=== PATIENT | female | born 1945 | race Caucasian/White ===

== ENCOUNTER 2019-03-05 12:29 | Inpatient (IN) ==
[2019-03-05] MEDS ORDERED: Fluticasone Propionate Nasal 50 MCG/SPRAY BOTTLE NS PRN (15:41)
[2019-03-05] MEDS: *HR* OxyCODONE Immed Rel 5 MG TABLET PO PRN (16:13)
--- NOTE | 2019-03-05 17:12 | Internal Med History&Physical ---
Date of Encounter: 03/05/19 Time of Encounter: 16:35 Assessment and Plan (1) Status post bilateral knee replacements Current visit: No Status: Acute PT and OT evaluations will be ordered. She will receive scheduled and prn analgesics. Lovenox will be given for DVT prophylaxis. (2) Hyperlipemia Current visit: No Status: Chronic Continue Vytorin. Qualifiers: Hyperlipidemia type: unspecified Qualified Code(s): E78.5 - Hyperlipidemia, unspecified (3) FEDERICO (obstructive sleep apnea) Current visit: No Status: Chronic Continue CPAP at bedtime (4) Acute blood loss anemia Current visit: No Status: Acute Monitor CBC. Internal Medicine - H&P: HPI Chief complaint: Bilateral TKR Admitted From: Hospital to Hospital Transfer Plans for Post Hospital Care: Home History of present illness: Ms. Watson is a 73 year old female who was discharged to [facility] swing bed following [facility] hospitalization March 01 for robotic-assisted bilateral TKR. Her postop course was remarkable only for anemia requiring blood transfusion. She was discharged to swing bed for rehabilitation therapy prior to returning to independent living. Muscle skeletal history is pertinent for DJD. She denies gout or other bone joint or muscle disorders. Past Med Surg Social Fam HX - Past Medical History Medical history: asthma, cancer, DVT, dementia, hyperlipidemia Additional medical history: SLEEP APNEA, FIBROMYALGIA, DVT, ENDOMETRIAL CA, MASTALGIA, VENOUS INSUFF, Psychiatric history: anxiety - Past Surgical History Additional surgical history: "not recently". cervical cancer. hernia, loop recorder. vein stripping - Social History Smoking Status: Former smoker Smokeless Tobacco Status: No Alcohol use: none Drug use: none - Family History Mother Hx Family Cardiac Disorders: Yes (Stroke) Hx Family Respiratory Disorders: No Hx Family Cancer: Yes (Cervical) Hx Family GI Disorders: No Hx Family Endocrine Disorder: Yes (DM) Hx Family Neuromuscular Disorders: No Hx Family Neurologic Disorders: No Hx Family HEENT Disorders: No Hx Family Autoimmune Disorders: No Brother Hx Family Cardiac Disorders: Yes (cva) Hx Family Respiratory Disorders: No Hx Family Cancer: No Hx Family GI Disorders: No Hx Family Endocrine Disorder: Yes (DM) Hx Family Neuromuscular Disorders: No Hx Family Neurologic Disorders: No Hx Family HEENT Disorders: No Hx Family Autoimmune Disorders: No Internal Medicine - H&P: Meds Citalopram [CeleXA] 30 mg PO DAILY 04/18/16 [History] Ezetimibe/Simvastatin [Vytorin 10-40 mg Tablet] 1 tab PO DAILY 04/18/16 [History] Gluc/Matt-MSM#1/C/Robert/Matthew/Bor [Osteo Bi-Flex Caplet] 1 tab PO DAILY 04/18/16 [History] Memantine HCl 10 mg PO BID 12/22/17 [History] Cholecalciferol (D-3) [Vitamin D] 2,000 unit PO DAILY 02/17/18 [History] Donepezil [Aricept] 5 mg PO DAILY 03/01/19 [History] Fluticasone Propionate Nasal [Flonase] 1 spr NS DAILY PRN 03/01/19 [History] Aspirin Enteric Coated [Aspirin EC] 325 mg PO BID 10 Days #20 tablet. 03/04/19 [Rx] Ferrous Sulfate 325 mg PO BIDWM tablet 03/04/19 [Rx] Lidocaine Patch [Lidoderm 5% patch] 1 each TP DAILY adh..patch 03/04/19 [Rx] OxyCODONE Immed Rel [Roxicodone 5 MG] 5 mg PO Q6HR PRN 5 Days #20 tablet 03/04/19 [Rx] Allergy/AdvReac Type Severity Reaction Status Date / Time lisinopril Allergy Swelling Verified 03/01/19 08:42 of Lip/Tongue/Throat All Systems PM: A 10-system review of systems was performed and is negative for pertinent findings except as documented above in the HPI. Review of systems: Gen.: Her weight has been stable for several months Cardiovascular: She denies hypertension CT heart failure angina DVT or pulmonary embolus. She had a loop recorder placed July 2018 to assist in diagnosing etiology of episodes of syncope. Regadenoson EST 02/18/2018 showed LVEF of 63%. EKG and perfusion imaging were negative for infarct or ischemia. Echocardiogram 02/17/2018 showed LVEF 50%. There was mild to moderate mitral regurgitation and mild tricuspid regurgitation. Interventricular septum and posterior wall thickness measurements were 1.07 and 0.96 cm respectively. E/A ratio was 0.8. Respiratory: She smoked as a teenager. She has diagnosis of asthma. She denies COPD. She has FEDERICO and uses CPAP with oxygen bleed in at bedtime. GI: She denies disorders of her liver gallbladder or exocrine pancreas. She has had ventral hernia repair 2 with most recent one 02/18/2018. : She has had UTIs in the past. She denies other kidney or bladder disorders Neurologic: She has been diagnosed with dementia. She denies large distribution strokes or seizures. Endocrine: She has hyperlipidemia but denies diabetes or thyroid disease Hematology/oncology: She had postoperative anemia requiring transfusion. She had cervical cancer with curative hysterectomy approximately 1980. She denies other blood disorders or internal malignancies Psychiatric: She has anxiety but denies depression or other mental health diagnosis Mus[place] skeletal: As per history of present illness - Constitutional Vitals: Temp Pulse Resp BP Pulse Ox 97.6 F 82 16 109/55 97 03/05/19 15:54 03/05/19 15:54 03/05/19 15:54 03/05/19 15:54 03/05/19 15:54 Exam: Gen.: She is a well-developed well-nourished female resting comfortably in bed who appears in no acute distress HEENT: Head is atraumatic and normal cephalic. Eyes: EOMI. There is no scleral icterus. Mouth: Mucosa is moist. Neck: Supple and nontender. There is no thyromegaly or adenopathy noted. Heart: Regular without murmurs gallops or ectopics Lungs: No wheezes or crackles are heard. Abdomen: Soft and nontender. No masses or guarding are noted. Extremities: There is no cyanosis edema or clubbing noted. Dorsalis pedis and posterior tibial pulses are trace to 1+ palpable bilaterally. She has surgical honeycomb dressings over her knees. Neurologic: Mental status: She is talkative and answers questions appropriately. Cranial nerves: Smile is symmetric. Forehead wrinkles bilaterally. Tongue protrudes midline. EOMI. Motor: There is no pronator drift. Cerebellar: Finger to nose is intact bilaterally. Skin: Warm and dry
[2019-03-05] MEDS: Acetaminophen 325 MG TABLET PO SCH (18:44)
[2019-03-05] MEDS ORDERED: Aspirin Enteric Coated 325 MG Tablet PO SCH (21:00)
[2019-03-06] MEDS: Acetaminophen 325 MG TABLET PO SCH ×4 (00:49→17:34)
[2019-03-06] MEDS: *HR* OxyCODONE Immed Rel 5 MG TABLET PO PRN ×3 (03:25→15:49)
[2019-03-06 05:54] LABS: Basophils % 0.3 %; Eosinophils # 0.5 K/mcL (0.0-0.6); Eosinophils % 7.6 %; Hemoglobin 8.3 g/dL (11.5-15.4); Immature Granulocytes % 0.6 % (0-4); Lymphocytes # 1.4 K/mcL (0.6-4.6); Lymphocytes % 22.4 %; Mean Corpuscular HGB Conc 33.2 g/dL (31.6-35.5); Mean Corpuscular Hemoglobin 31.3 pg (28.0-33.3); Mean Corpuscular Volume 94.3 fL (83.0-100.0); Mean Platelet Volume 9.8 fL (9.4-12.4); Monocytes # 0.6 K/mcL (0.0-1.3); Monocytes % 9.1 %; Neutrophils # 3.7 K/mcL (1.6-8.9); Platelet Count 177 K/mcL (140-400); Red Blood Count 2.65 M/mcL (3.82-4.97); Red Cell Distribution Width 16.4 % (11.5-14.5); White Blood Count 6.2 K/mcL (4.3-11.1)
[2019-03-06] MEDS: *HR* Enoxaparin 40 MG/0.4 ML SYRINGE SQ SCH (06:56)
[2019-03-06] MEDS ORDERED: NON-FORMULARY MEDICATION 1 EACH EACH (Gluc/Chon-Msm#1/C/Mang/Bos/Bor [Osteo Bi-Flex Caplet PO SCH (09:00)
--- NOTE | 2019-03-06 09:10 | Internal Med Progress Note ---
Date of Encounter: 03/06/19 Time of Encounter: 09:03 - Assessment and plan (1) Status post bilateral knee replacements Current Visit: No Status: Acute Assessment and plan: March 06. Continue PT/OT, Lidoderm and other analgesics. (2) Hyperlipemia Current Visit: No Status: Chronic Assessment and plan: March 06. Continue Vytorin Qualifiers: Hyperlipidemia type: unspecified Qualified Code(s): E78.5 - Hyperlipidemia, unspecified (3) FEDERICO (obstructive sleep apnea) Current Visit: No Status: Chronic Assessment and plan: March 06. Continue CPAP at bedtime (4) Acute blood loss anemia Current Visit: No Status: Acute Assessment and plan: March 06. Monitor CBC - Subjective Interval history: March 06. She has no new complaints. - Constitutional Vitals: Temp Pulse Resp BP Pulse Ox 98.3 F 63 18 115/71 97 03/06/19 07:17 03/06/19 07:17 03/06/19 07:17 03/06/19 07:17 03/06/19 07:17 Exam: She is resting comfortably in bed and appears in no acute distress. Her affect is bright and cheerful. There is no erythema or drainage visualized at surgical sites. I reviewed her medications and lab results. Internal Medicine: Result - Labs CBC & Chem 7: 03/06/19 05:32 Labs: Short CBC 03/06/19 Range/Units 05:32 WBC 6.2 (4.3-11.1) K/mcL Hgb 8.3 L (11.5-15.4) g/dL Hct 25.0 L (35.3-44.9) % Plt Count 177 (140-400) K/mcL Neutrophils # 3.7 (1.6-8.9) K/mcL Consult Discharge Plan - Plan Referrals: Juan Asif MD [Primary Care Provider] - 1 week
[2019-03-06 09:17] LABS: % Iron Saturation 18 % (15-50); Iron 53 mcg/dL (50-170); Transferrin 213 mg/dL (203-362)
[2019-03-06] MEDS: Cholecalciferol (D-3) 1,000 UNIT (25MCG) TABLET PO SCH (09:25)
[2019-03-06 09:35] LABS: Ferritin 53 ng/mL (10-120)
[2019-03-06 09:40] LABS: Folate 6.2 ng/mL (3.0-16.0)
[2019-03-07] MEDS: Acetaminophen 325 MG TABLET PO SCH ×4 (01:00→16:59)
[2019-03-07] MEDS: *HR* OxyCODONE Immed Rel 5 MG TABLET PO PRN ×3 (02:23→18:30)
[2019-03-07] MEDS: *HR* Enoxaparin 40 MG/0.4 ML SYRINGE SQ SCH (05:46)
[2019-03-07] MEDS: Cholecalciferol (D-3) 1,000 UNIT (25MCG) TABLET PO SCH (09:53)
[2019-03-08] MEDS: *HR* OxyCODONE Immed Rel 5 MG TABLET PO PRN ×3 (01:22→13:39)
[2019-03-08] MEDS: Acetaminophen 325 MG TABLET PO SCH ×4 (06:42→17:07)
[2019-03-08] MEDS: *HR* Enoxaparin 40 MG/0.4 ML SYRINGE SQ SCH (06:42)
[2019-03-08] MEDS: MOM Conc 10 ML UD.LIQ PO PRN (08:14)
[2019-03-08] MEDS: Cholecalciferol (D-3) 1,000 UNIT (25MCG) TABLET PO SCH (08:19)
[2019-03-08] MEDS ORDERED: *HR* OxyCODONE Immed Rel 5 MG TABLET PO PRN (11:00)
[2019-03-08] MEDS ORDERED: Cyanocobalamin (B-12) 1,000 MCG/ML VIAL IM ONE (15:18)
--- NOTE | 2019-03-08 15:27 | Internal Med Progress Note ---
Date of Encounter: 03/08/19 Time of Encounter: 15:20 - Assessment and plan (1) Status post bilateral knee replacements Current Visit: No Status: Acute Assessment and plan: March 06. Continue PT/OT, Lidoderm and other analgesics. (2) Hyperlipemia Current Visit: No Status: Chronic Assessment and plan: March 06. Continue Vytorin Qualifiers: Hyperlipidemia type: unspecified Qualified Code(s): E78.5 - Hyperlipidemia, unspecified (3) FEDERICO (obstructive sleep apnea) Current Visit: No Status: Chronic Assessment and plan: March 06. Continue CPAP at bedtime (4) Acute blood loss anemia Current Visit: No Status: Acute Assessment and plan: March 06. Monitor CBC March 08. Recheck labs in a.m. (5) B12 deficiency Current Visit: Yes Status: Acute Assessment and plan: March 08. B12 level returned low at 156. She will be given a B12 injection and start oral B12 supplement. - Subjective Interval history: March 06. She has no new complaints. March 08. She has no new complaints. She has pain in her legs after therapy today. - Constitutional Vitals: Temp Pulse Resp BP Pulse Ox 98.1 F 72 16 132/72 96 03/08/19 06:46 03/08/19 06:46 03/08/19 06:46 03/08/19 06:46 03/08/19 06:46 Exam: She is resting comfortably in bed and appears in no acute distress. Her affect is bright and cheerful. Extremities show no pitting edema. I reviewed her medications and lab results. Internal Medicine: Result - Labs CBC & Chem 7: 03/06/19 05:32 Consult Discharge Plan - Plan Referrals: Juan Asif MD [Primary Care Provider] - 1 week
[2019-03-09] MEDS: *HR* OxyCODONE Immed Rel 5 MG TABLET PO PRN ×4 (03:46→21:32)
[2019-03-09] MEDS: Acetaminophen 325 MG TABLET PO SCH ×4 (05:34→17:27)
[2019-03-09] MEDS: *HR* Enoxaparin 40 MG/0.4 ML SYRINGE SQ SCH (05:34)
[2019-03-09 06:29] LABS: Basophils % 0.5 %; Eosinophils # 0.5 K/mcL (0.0-0.6); Hematocrit 28.4 % (35.3-44.9); Hemoglobin 9.2 g/dL (11.5-15.4); Immature Granulocytes % 0.9 % (0-4); Lymphocytes # 1.2 K/mcL (0.6-4.6); Lymphocytes % 18.9 %; Mean Corpuscular HGB Conc 32.4 g/dL (31.6-35.5); Mean Corpuscular Hemoglobin 31.4 pg (28.0-33.3); Mean Corpuscular Volume 96.9 fL (83.0-100.0); Mean Platelet Volume 9.5 fL (9.4-12.4); Monocytes # 0.7 K/mcL (0.0-1.3); Monocytes % 10.2 %; Neutrophils # 3.9 K/mcL (1.6-8.9); Platelet Count 221 K/mcL (140-400); Red Blood Count 2.93 M/mcL (3.82-4.97); Red Cell Distribution Width 15.8 % (11.5-14.5); Segmented Neutrophils % 61.5 %; White Blood Count 6.4 K/mcL (4.3-11.1)
[2019-03-09 06:58] LABS: BUN/Creatinine Ratio 26 (6-26); Blood Urea Nitrogen 14 mg/dL (8-23); Calcium 8.2 mg/dL (8.6-10.3); Carbon Dioxide 30 mEq/L (23-29); Chloride 104 mEq/L (98-107); Glucose 91 mg/dL (70-105); Osmolality,Calculated 290 (280-300); Sodium 140 mEq/L (136-145); eGFR For African Americans > 60 (> 60); eGFR For Non-African Americans > 60 (> 60)
[2019-03-09] MEDS: Cyanocobalamin (B-12) 1,000 MCG TABLET PO SCH (09:26)
[2019-03-09] MEDS: Cholecalciferol (D-3) 1,000 UNIT (25MCG) TABLET PO SCH (09:26)
[2019-03-09] MEDS: MOM Conc 10 ML UD.LIQ PO PRN (17:32)
[2019-03-10] MEDS: Acetaminophen 325 MG TABLET PO SCH ×4 (01:01→17:38)
[2019-03-10] MEDS: *HR* Enoxaparin 40 MG/0.4 ML SYRINGE SQ SCH (06:20)
[2019-03-10] MEDS ORDERED: Ondansetron ODT 4 MG TAB.RAPDIS SL PRN (08:18)
[2019-03-10] MEDS: *HR* OxyCODONE Immed Rel 5 MG TABLET PO PRN ×2 (08:50→20:31)
[2019-03-10] MEDS: Cyanocobalamin (B-12) 1,000 MCG TABLET PO SCH (08:51)
[2019-03-10] MEDS: Cholecalciferol (D-3) 1,000 UNIT (25MCG) TABLET PO SCH (08:52)
--- NOTE | 2019-03-10 15:04 | Internal Med Progress Note ---
Date of Encounter: 03/10/19 Time of Encounter: 14:55 - Assessment and plan (1) Status post bilateral knee replacements Current Visit: No Status: Acute Assessment and plan: March 06. Continue PT/OT, Lidoderm and other analgesics. (2) Hyperlipemia Current Visit: No Status: Chronic Assessment and plan: March 06. Continue Vytorin Qualifiers: Hyperlipidemia type: unspecified Qualified Code(s): E78.5 - Hyperlipidemia, unspecified (3) FEDERICO (obstructive sleep apnea) Current Visit: No Status: Chronic Assessment and plan: March 06. Continue CPAP at bedtime (4) Acute blood loss anemia Current Visit: No Status: Acute Assessment and plan: March 06. Monitor CBC March 08. Recheck labs in a.m. March 10. Hemoglobin improved to 9.2. Continue to monitor periodically. (5) B12 deficiency Current Visit: Yes Status: Acute Assessment and plan: March 08. B12 level returned low at 156. She will be given a B12 injection and start oral B12 supplement. March 10. Continue oral B12 supplement - Subjective Interval history: March 06. She has no new complaints. March 08. She has no new complaints. She has pain in her legs after therapy today. March 10. She has no new complaints. - Constitutional Vitals: Temp Pulse Resp BP Pulse Ox 98.3 F 106 17 114/69 97 03/10/19 08:33 03/10/19 08:33 03/10/19 08:33 03/10/19 08:33 03/10/19 08:33 Exam: She is resting comfortably in a wheelchair at bedside. There is trace pitting edema of the dorsum of feet and lower legs bilaterally. Honeycomb dressings are still in place over the anterior knees. Lidoderm patch is present on the left thigh but not on the right. I reviewed her medications and lab results. Internal Medicine: Result - Labs CBC & Chem 7: 03/09/19 05:57 03/09/19 05:57 Consult Discharge Plan - Plan Referrals: Juan Asif MD [Primary Care Provider] - 1 week
[2019-03-11] MEDS: Acetaminophen 325 MG TABLET PO SCH ×4 (01:19→17:12)
[2019-03-11] MEDS: *HR* OxyCODONE Immed Rel 5 MG TABLET PO PRN ×3 (04:41→21:44)
[2019-03-11] MEDS: *HR* Enoxaparin 40 MG/0.4 ML SYRINGE SQ SCH (06:17)
[2019-03-11] MEDS: Cyanocobalamin (B-12) 1,000 MCG TABLET PO SCH (11:12)
[2019-03-11] MEDS: Cholecalciferol (D-3) 1,000 UNIT (25MCG) TABLET PO SCH (11:14)
[2019-03-12] MEDS: Acetaminophen 325 MG TABLET PO SCH ×4 (02:29→18:06)
[2019-03-12] MEDS: *HR* Enoxaparin 40 MG/0.4 ML SYRINGE SQ SCH (06:15)
[2019-03-12] MEDS: Cyanocobalamin (B-12) 1,000 MCG TABLET PO SCH (09:10)
[2019-03-12] MEDS: Cholecalciferol (D-3) 1,000 UNIT (25MCG) TABLET PO SCH (09:11)
[2019-03-12] MEDS: *HR* OxyCODONE Immed Rel 5 MG TABLET PO PRN ×2 (09:20→19:03)
--- NOTE | 2019-03-12 14:49 | Internal Med Progress Note ---
Date of Encounter: 03/12/19 Time of Encounter: 14:40 - Assessment and plan (1) Status post bilateral knee replacements Current Visit: No Status: Acute Assessment and plan: March 06. Continue PT/OT, Lidoderm and other analgesics. (2) Hyperlipemia Current Visit: No Status: Chronic Assessment and plan: March 06. Continue Vytorin Qualifiers: Hyperlipidemia type: unspecified Qualified Code(s): E78.5 - Hyperlipidemia, unspecified (3) FEDERICO (obstructive sleep apnea) Current Visit: No Status: Chronic Assessment and plan: March 06. Continue CPAP at bedtime (4) Acute blood loss anemia Current Visit: No Status: Acute Assessment and plan: March 06. Monitor CBC March 08. Recheck labs in a.m. March 10. Hemoglobin improved to 9.2. Continue to monitor periodically. March 12. Recheck labs in a.m. (5) B12 deficiency Current Visit: Yes Status: Acute Assessment and plan: March 08. B12 level returned low at 156. She will be given a B12 injection and start oral B12 supplement. March 10. Continue oral B12 supplement (6) Muscle spasm Current Visit: Yes Status: Acute Assessment and plan: March 12. Lidoderm will be discontinued and she will be started on BenGay. Flexeril will be given prn. - Subjective Interval history: March 06. She has no new complaints. March 08. She has no new complaints. She has pain in her legs after therapy today. March 10. She has no new complaints. March 12. She complains of muscle cramps in her legs more on the left than the right. - Constitutional Vitals: Temp Pulse Resp BP Pulse Ox 98.3 F 81 16 113/69 95 03/12/19 07:27 03/12/19 07:27 03/12/19 07:27 03/12/19 07:27 03/12/19 07:27 Exam: She is resting comfortably in bed and appears in no acute distress. Her affect is overall cheerful. There is no pitting edema. Knee incisions are covered with honeycomb foam and OpSite. No drainage is seen. There is no visible erythema. I reviewed her medications and lab results. Internal Medicine: Result - Labs CBC & Chem 7: 03/09/19 05:57 03/09/19 05:57 Consult Discharge Plan - Plan Referrals: Juan Asif MD [Primary Care Provider] - 1 week
[2019-03-12] MEDS: Methyl Salicylate/Menthol 28 GM TUBE TP SCH (22:05)
[2019-03-13] MEDS: Acetaminophen 325 MG TABLET PO SCH ×4 (01:00→17:18)
[2019-03-13 05:51] LABS: Basophils % 0.8 %; Eosinophils # 0.5 K/mcL (0.0-0.6); Eosinophils % 9.8 %; Hematocrit 29.3 % (35.3-44.9); Hemoglobin 9.5 g/dL (11.5-15.4); Immature Granulocytes % 1.8 % (0-4); Lymphocytes # 1.2 K/mcL (0.6-4.6); Lymphocytes % 22.6 %; Mean Corpuscular HGB Conc 32.4 g/dL (31.6-35.5); Mean Corpuscular Hemoglobin 31.9 pg (28.0-33.3); Mean Corpuscular Volume 98.3 fL (83.0-100.0); Mean Platelet Volume 9.2 fL (9.4-12.4); Monocytes # 0.6 K/mcL (0.0-1.3); Monocytes % 11.6 %; Neutrophils # 2.7 K/mcL (1.6-8.9); Platelet Count 236 K/mcL (140-400); Red Blood Count 2.98 M/mcL (3.82-4.97); Segmented Neutrophils % 53.4 %; White Blood Count 5.1 K/mcL (4.3-11.1)
[2019-03-13] MEDS: *HR* OxyCODONE Immed Rel 5 MG TABLET PO PRN ×2 (06:09→22:17)
[2019-03-13] MEDS: *HR* Enoxaparin 40 MG/0.4 ML SYRINGE SQ SCH (06:09)
[2019-03-13 06:10] LABS: BUN/Creatinine Ratio 21 (6-26); Blood Urea Nitrogen 12 mg/dL (8-23); Calcium 8.6 mg/dL (8.6-10.3); Carbon Dioxide 32 mEq/L (23-29); Chloride 105 mEq/L (98-107); Glucose 82 mg/dL (70-105); Osmolality,Calculated 293 (280-300); Potassium 4.2 mEq/L (3.5-5.1); Sodium 142 mEq/L (136-145); eGFR For African Americans > 60 (> 60); eGFR For Non-African Americans > 60 (> 60)
[2019-03-13] MEDS: Cyanocobalamin (B-12) 1,000 MCG TABLET PO SCH (08:17)
[2019-03-13] MEDS: Cholecalciferol (D-3) 1,000 UNIT (25MCG) TABLET PO SCH (08:18)
[2019-03-13] MEDS: Methyl Salicylate/Menthol 28 GM TUBE TP SCH ×2 (08:20→22:12)
[2019-03-14] MEDS: Acetaminophen 325 MG TABLET PO SCH ×4 (02:15→18:05)
[2019-03-14] MEDS: *HR* Enoxaparin 40 MG/0.4 ML SYRINGE SQ SCH (07:01)
[2019-03-14] MEDS: Cyanocobalamin (B-12) 1,000 MCG TABLET PO SCH (08:30)
[2019-03-14] MEDS: Methyl Salicylate/Menthol 28 GM TUBE TP SCH ×2 (08:31→21:51)
[2019-03-14] MEDS: Cholecalciferol (D-3) 1,000 UNIT (25MCG) TABLET PO SCH (08:32)
--- NOTE | 2019-03-14 13:46 | Internal Med Progress Note ---
Date of Encounter: 03/14/19 Time of Encounter: 13:38 - Assessment and plan (1) Status post bilateral knee replacements Current Visit: No Status: Acute Assessment and plan: March 06. Continue PT/OT, Lidoderm and other analgesics. (2) Hyperlipemia Current Visit: No Status: Chronic Assessment and plan: March 06. Continue Vytorin March 14. Hold Zocor and see if muscle cramps lessen. Qualifiers: Hyperlipidemia type: unspecified Qualified Code(s): E78.5 - Hyperlipidemia, unspecified (3) FEDERICO (obstructive sleep apnea) Current Visit: No Status: Chronic Assessment and plan: March 06. Continue CPAP at bedtime (4) Acute blood loss anemia Current Visit: No Status: Acute Assessment and plan: March 06. Monitor CBC March 08. Recheck labs in a.m. March 10. Hemoglobin improved to 9.2. Continue to monitor periodically. March 12. Recheck labs in a.m. (5) B12 deficiency Current Visit: Yes Status: Acute Assessment and plan: March 08. B12 level returned low at 156. She will be given a B12 injection and start oral B12 supplement. March 10. Continue oral B12 supplement (6) Muscle spasm Current Visit: Yes Status: Acute Assessment and plan: March 12. Lidoderm will be discontinued and she will be started on BenGay. Flexeril will be given prn. March 14. Remain off Lidoderm. Hold Zocor and see if additional improvement occurs. - Subjective Interval history: March 06. She has no new complaints. March 08. She has no new complaints. She has pain in her legs after therapy today. March 10. She has no new complaints. March 12. She complains of muscle cramps in her legs more on the left than the right. March 14. She has no new complaints. She is still experiencing some muscle cramps but they have not worsened. - Constitutional Vitals: Temp Pulse Resp BP Pulse Ox 98.2 F 73 16 119/75 95 03/14/19 07:55 03/14/19 07:55 03/14/19 07:55 03/14/19 07:55 03/14/19 07:55 Exam: She is resting comfortably in bed and appears in no acute distress. Her affect is bright and cheerful. I reviewed her medications and lab results. Internal Medicine: Result - Labs CBC & Chem 7: 03/13/19 04:45 03/13/19 04:45 Consult Discharge Plan - Plan Referrals: Juan Asif MD [Primary Care Provider] - 1 week
[2019-03-14] MEDS: *HR* OxyCODONE Immed Rel 5 MG TABLET PO PRN (18:57)
[2019-03-15] MEDS: Acetaminophen 325 MG TABLET PO SCH ×4 (00:06→17:01)
[2019-03-15] MEDS: *HR* OxyCODONE Immed Rel 5 MG TABLET PO PRN ×4 (03:14→21:49)
[2019-03-15] MEDS: *HR* Enoxaparin 40 MG/0.4 ML SYRINGE SQ SCH (06:53)
[2019-03-15] MEDS: Cyanocobalamin (B-12) 1,000 MCG TABLET PO SCH (09:26)
[2019-03-15] MEDS: Cholecalciferol (D-3) 1,000 UNIT (25MCG) TABLET PO SCH (09:27)
[2019-03-15] MEDS: Methyl Salicylate/Menthol 28 GM TUBE TP SCH ×2 (09:28→21:53)
[2019-03-16] MEDS: Acetaminophen 325 MG TABLET PO SCH ×4 (02:35→18:09)
[2019-03-16] MEDS: *HR* Enoxaparin 40 MG/0.4 ML SYRINGE SQ SCH (06:30)
[2019-03-16] MEDS: Cyanocobalamin (B-12) 1,000 MCG TABLET PO SCH (08:28)
[2019-03-16] MEDS: Cholecalciferol (D-3) 1,000 UNIT (25MCG) TABLET PO SCH (08:28)
[2019-03-16] MEDS: Methyl Salicylate/Menthol 28 GM TUBE TP SCH ×2 (08:29→20:35)
[2019-03-16] MEDS: *HR* OxyCODONE Immed Rel 5 MG TABLET PO PRN (20:34)
[2019-03-17] MEDS: Acetaminophen 325 MG TABLET PO SCH ×4 (01:16→17:15)
[2019-03-17] MEDS: *HR* Enoxaparin 40 MG/0.4 ML SYRINGE SQ SCH (05:08)
[2019-03-17] MEDS: *HR* OxyCODONE Immed Rel 5 MG TABLET PO PRN ×2 (05:09→21:52)
[2019-03-17] MEDS: Cholecalciferol (D-3) 1,000 UNIT (25MCG) TABLET PO SCH (07:42)
[2019-03-17] MEDS: Methyl Salicylate/Menthol 28 GM TUBE TP SCH ×2 (07:42→22:09)
[2019-03-17] MEDS: Cyanocobalamin (B-12) 1,000 MCG TABLET PO SCH (07:42)
[2019-03-18] MEDS: Acetaminophen 325 MG TABLET PO SCH ×4 (00:19→17:19)
[2019-03-18] MEDS: *HR* Enoxaparin 40 MG/0.4 ML SYRINGE SQ SCH (05:38)
[2019-03-18] MEDS: Cholecalciferol (D-3) 1,000 UNIT (25MCG) TABLET PO SCH (08:32)
[2019-03-18] MEDS: Cyanocobalamin (B-12) 1,000 MCG TABLET PO SCH (08:33)
[2019-03-18] MEDS: Methyl Salicylate/Menthol 28 GM TUBE TP SCH ×2 (08:34→21:46)
--- NOTE | 2019-03-18 15:30 | Discharge Summary ---
Date of Encounter: 03/18/19 Time of Encounter: 15:25 - Discharge Diagnosis (1) Status post bilateral knee replacements Status: Acute (2) Hyperlipemia Status: Chronic Qualifiers: Hyperlipidemia type: unspecified Qualified Code(s): E78.5 - Hyperlipidemia, unspecified (3) FEDERICO (obstructive sleep apnea) Status: Chronic (4) Acute blood loss anemia Status: Acute (5) B12 deficiency Status: Acute (6) Muscle spasm Status: Acute Hospital course: Ms. Watson is a 73 year old female - Time Spent with Patient Total time spent providing and/or coordinating discharge services: - Discharge Medications Prescriptions: No Action Citalopram [CeleXA] 30 mg PO DAILY Gluc/Matt-MSM#1/C/Robert/Matthew/Bor [Osteo Bi-Flex Caplet] 1 tab PO DAILY Ezetimibe/Simvastatin [Vytorin 10-40 mg Tablet] 1 tab PO DAILY Memantine HCl 10 mg PO BID Cholecalciferol (D-3) [Vitamin D] 2,000 unit PO DAILY Donepezil [Aricept] 5 mg PO DAILY Fluticasone Propionate Nasal [Flonase] 1 spr NS DAILY PRN PRN Reason: Allergy Symptoms Ferrous Sulfate 325 mg PO BIDWM tablet Lidocaine Patch [Lidoderm 5% patch] 1 each TP DAILY adh..patch Home Medications: Citalopram [CeleXA] 30 mg PO DAILY 04/18/16 [History] Ezetimibe/Simvastatin [Vytorin 10-40 mg Tablet] 1 tab PO DAILY 04/18/16 [History] Gluc/Matt-MSM#1/C/Robert/Matthew/Bor [Osteo Bi-Flex Caplet] 1 tab PO DAILY 04/18/16 [History] Memantine HCl 10 mg PO BID 12/22/17 [History] Cholecalciferol (D-3) [Vitamin D] 2,000 unit PO DAILY 02/17/18 [History] Donepezil [Aricept] 5 mg PO DAILY 03/01/19 [History] Fluticasone Propionate Nasal [Flonase] 1 spr NS DAILY PRN 03/01/19 [History] Ferrous Sulfate 325 mg PO BIDWM tablet 03/04/19 [Rx] Lidocaine Patch [Lidoderm 5% patch] 1 each TP DAILY adh..patch 03/04/19 [Rx] Allergies/Adverse Reactions: Allergy/AdvReac Type Severity Reaction Status Date / Time lisinopril Allergy Swelling Verified 03/01/19 08:42 of Lip/Tongue/Throat Date of admission: 03/05/19 15:49 Primary care physician: Juan Asif MD Consults: 03/05/19 15:24 Consult to Occupational Therapy [CONS] Routine Comment: Evaluate, develop, and implement plan of care Reason for Consult: Evaluate, develop, and implement plan of care Does patient have active BEDREST order?: No Is patient medically & hemodynamically stable?: Yes Patient assessed for mobility or mobilized this visit?: No Consult to Physical Therapy [CONS] Routine Comment: Evaluate, develop, and implement plan of care Reason for Consult: Evaluate, develop, and implement plan of care Does patient have active BEDREST order?: No Is patient medically & hemodynamically stable?: Yes Patient assessed for mobility or mobilized this visit?: No Consult to Residential Care Facility Manager [CONS] Routine Reason for SW Consult: Discharge Planning - Constitutional Vitals: Temp Pulse Resp BP Pulse Ox 98.1 F 70 16 97/56 95 03/18/19 06:46 03/18/19 06:46 03/18/19 06:46 03/18/19 06:46 03/18/19 06:46 - Discharge Instructions Follow Up With: Juan Asif MD [Primary Care Provider] - 1 week
--- NOTE | 2019-03-18 15:32 | Internal Med Progress Note ---
Date of Encounter: 03/18/19 Time of Encounter: 15:25 - Assessment and plan (1) Status post bilateral knee replacements Current Visit: No Status: Acute Assessment and plan: March 06. Continue PT/OT, Lidoderm and other analgesics. (2) Hyperlipemia Current Visit: No Status: Chronic Assessment and plan: March 06. Continue Vytorin March 14. Hold Zocor and see if muscle cramps lessen. March 18. She did not mention muscle cramps today. Remain off Sotacor and continue to monitor. Qualifiers: Hyperlipidemia type: unspecified Qualified Code(s): E78.5 - Hyperlipidemia, unspecified (3) FEDERICO (obstructive sleep apnea) Current Visit: No Status: Chronic Assessment and plan: March 06. Continue CPAP at bedtime (4) Acute blood loss anemia Current Visit: No Status: Acute Assessment and plan: March 06. Monitor CBC March 08. Recheck labs in a.m. March 10. Hemoglobin improved to 9.2. Continue to monitor periodically. March 12. Recheck labs in a.m. March 18. Hemoglobin improved to 9.5 on March 13. Continue to monitor periodically (5) B12 deficiency Current Visit: Yes Status: Acute Assessment and plan: March 08. B12 level returned low at 156. She will be given a B12 injection and start oral B12 supplement. March 10. Continue oral B12 supplement (6) Muscle spasm Current Visit: Yes Status: Acute Assessment and plan: March 12. Lidoderm will be discontinued and she will be started on BenGay. Flexeril will be given prn. March 14. Remain off Lidoderm. Hold Zocor and see if additional improvement occurs. - Subjective Interval history: March 06. She has no new complaints. March 08. She has no new complaints. She has pain in her legs after therapy today. March 10. She has no new complaints. March 12. She complains of muscle cramps in her legs more on the left than the right. March 14. She has no new complaints. She is still experiencing some muscle cramps but they have not worsened. March 18. She has no new complaints. - Constitutional Vitals: Temp Pulse Resp BP Pulse Ox 98.1 F 70 16 97/56 95 03/18/19 06:46 03/18/19 06:46 03/18/19 06:46 03/18/19 06:46 03/18/19 06:46 Exam: She is resting comfortably in bed and appears in no acute distress. Her affect is bright and cheerful. I reviewed her medications and lab results. Internal Medicine: Result - Labs CBC & Chem 7: 03/13/19 04:45 03/13/19 04:45 Consult Discharge Plan - Plan Referrals: Juan Asif MD [Primary Care Provider] - 1 week
[2019-03-18] MEDS: *HR* OxyCODONE Immed Rel 5 MG TABLET PO PRN (21:46)
[2019-03-19] MEDS: Acetaminophen 325 MG TABLET PO SCH ×4 (00:09→16:44)
[2019-03-19] MEDS: *HR* Enoxaparin 40 MG/0.4 ML SYRINGE SQ SCH (05:30)
[2019-03-19] MEDS: *HR* OxyCODONE Immed Rel 5 MG TABLET PO PRN ×2 (09:17→21:48)
[2019-03-19] MEDS: Cholecalciferol (D-3) 1,000 UNIT (25MCG) TABLET PO SCH (09:18)
[2019-03-19] MEDS: Methyl Salicylate/Menthol 28 GM TUBE TP SCH ×2 (09:19→21:49)
[2019-03-19] MEDS: Cyanocobalamin (B-12) 1,000 MCG TABLET PO SCH (09:19)
[2019-03-19] MEDS: MOM Conc 10 ML UD.LIQ PO PRN (17:25)
[2019-03-20] MEDS: *HR* Enoxaparin 40 MG/0.4 ML SYRINGE SQ SCH (06:45)
[2019-03-20] MEDS: Acetaminophen 325 MG TABLET PO SCH ×5 (06:45→23:08)
[2019-03-20] MEDS: Cyanocobalamin (B-12) 1,000 MCG TABLET PO SCH (11:21)
[2019-03-20] MEDS: Cholecalciferol (D-3) 1,000 UNIT (25MCG) TABLET PO SCH (11:21)
[2019-03-20] MEDS: Methyl Salicylate/Menthol 28 GM TUBE TP SCH ×2 (11:23→20:29)
[2019-03-20] MEDS: *HR* OxyCODONE Immed Rel 5 MG TABLET PO PRN (20:30)
[2019-03-21] MEDS: *HR* OxyCODONE Immed Rel 5 MG TABLET PO PRN ×2 (04:30→10:16)
[2019-03-21] MEDS: *HR* Enoxaparin 40 MG/0.4 ML SYRINGE SQ SCH (05:30)
[2019-03-21] MEDS: Acetaminophen 325 MG TABLET PO SCH ×4 (05:30→20:17)
[2019-03-21] MEDS: Cholecalciferol (D-3) 1,000 UNIT (25MCG) TABLET PO SCH (10:16)
[2019-03-21] MEDS: Cyanocobalamin (B-12) 1,000 MCG TABLET PO SCH (10:16)
[2019-03-21] MEDS: Methyl Salicylate/Menthol 28 GM TUBE TP SCH ×2 (10:17→20:46)
[2019-03-22] MEDS: Acetaminophen 325 MG TABLET PO SCH (05:30)
[2019-03-22] MEDS: *HR* Enoxaparin 40 MG/0.4 ML SYRINGE SQ SCH (05:31)
[2019-03-22 07:14] VITALS: BP 120/74
[2019-03-22] MEDS: Cholecalciferol (D-3) 1,000 UNIT (25MCG) TABLET PO SCH (08:33)
[2019-03-22] MEDS: Cyanocobalamin (B-12) 1,000 MCG TABLET PO SCH (08:33)
[2019-03-22] MEDS: *HR* OxyCODONE Immed Rel 5 MG TABLET PO PRN (08:33)
[2019-03-22] MEDS: Methyl Salicylate/Menthol 28 GM TUBE TP SCH (08:36)
--- NOTE | 2019-03-22 10:31 | Discharge Summary ---
Date of Encounter: 03/22/19 Time of Encounter: 10:20 - Discharge Diagnosis (1) Status post bilateral knee replacements Priority: Primary Status: Acute (2) Hyperlipemia Priority: Secondary Status: Chronic Qualifiers: Hyperlipidemia type: unspecified Qualified Code(s): E78.5 - Hyperlipidemia, unspecified (3) [place]ER[place] (obstructive sleep apnea) Priority: Secondary Status: Chronic (4) Acute blood loss anemia Priority: Secondary Status: Acute (5) B12 deficiency Priority: Secondary Status: Acute (6) Muscle spasm Priority: Secondary Status: Acute Hospital course: Ms. Watson is a 73 year old female who was discharged to [facility] swing bed following [facility] hospitalization March 01- for robotic-assisted bilateral TKR. Her postop course was remarkable only for anemia requiring blood transfusion. She was discharged to swing bed for rehabilitation therapy prior to returning to independent living. Initial orders were written by the discharging physicians at [facility]. I saw her on March 05 and performed the swing bed history and physical. She had physical therapy and occupational therapy evaluations with ongoing intervention. Topical Lidoderm and oral/topical analgesics were used. She had satisfactory progress in therapy. On March 22 arrangements were complete for her to be discharged home. She will follow with her orthopedist as directed. Home health services will be ordered. B12 level returned low 156. She was given a B12 injection started on oral B12 supplement. She will continue this at discharge. She will follow with her PCP Dr. Jean-Paul Asif within 1 week. - Time Spent with Patient Total time spent providing and/or coordinating discharge services: - Discharge Medications Prescriptions: New Acetaminophen [Tylenol] 650 mg PO Q6HR PRN tablet PRN Reason: Pain Cyanocobalamin (B-12) [Vitamin B12] 1,000 mcg PO DAILY #30 tablet Continued Citalopram [CeleXA] 30 mg PO DAILY Gluc/Matt-MSM#1/C/Robert/Matthew/Bor [Osteo Bi-Flex Caplet] 1 tab PO DAILY Ezetimibe/Simvastatin [Vytorin 10-40 mg Tablet] 1 tab PO DAILY Memantine HCl 10 mg PO BID Cholecalciferol (D-3) [Vitamin D] 2,000 unit PO DAILY Donepezil [Aricept] 5 mg PO DAILY Fluticasone Propionate Nasal [Flonase] 1 spr NS DAILY PRN PRN Reason: Allergy Symptoms Ferrous Sulfate 325 mg PO BIDWM tablet Discontinued Lidocaine Patch [Lidoderm 5% patch] 1 each TP DAILY adh..patch Home Medications: Citalopram [CeleXA] 30 mg PO DAILY 04/18/16 [History] Ezetimibe/Simvastatin [Vytorin 10-40 mg Tablet] 1 tab PO DAILY 04/18/16 [History] Gluc/Matt-MSM#1/C/Robert/Matthew/Bor [Osteo Bi-Flex Caplet] 1 tab PO DAILY 04/18/16 [History] Memantine HCl 10 mg PO BID 12/22/17 [History] Cholecalciferol (D-3) [Vitamin D] 2,000 unit PO DAILY 02/17/18 [History] Donepezil [Aricept] 5 mg PO DAILY 03/01/19 [History] Fluticasone Propionate Nasal [Flonase] 1 spr NS DAILY PRN 03/01/19 [History] Ferrous Sulfate 325 mg PO BIDWM tablet 03/04/19 [Rx] Acetaminophen [Tylenol] 650 mg PO Q6HR PRN tablet 03/22/19 [Rx] Cyanocobalamin (B-12) [Vitamin B12] 1,000 mcg PO DAILY #30 tablet 03/22/19 [Rx] Allergies/Adverse Reactions: Allergy/AdvReac Type Severity Reaction Status Date / Time lisinopril Allergy Swelling Verified 03/01/19 08:42 of Lip/Tongue/Throat Date of admission: 03/05/19 15:49 Primary care physician: Juan Asif MD Consults: 03/05/19 15:24 Consult to Occupational Therapy [CONS] Routine Comment: Evaluate, develop, and implement plan of care Reason for Consult: Evaluate, develop, and implement plan of care Does patient have active BEDREST order?: No Is patient medically & hemodynamically stable?: Yes Patient assessed for mobility or mobilized this visit?: No Consult to Physical Therapy [CONS] Routine Comment: Evaluate, develop, and implement plan of care Reason for Consult: Evaluate, develop, and implement plan of care Does patient have active BEDREST order?: No Is patient medically & hemodynamically stable?: Yes Patient assessed for mobility or mobilized this visit?: No Consult to Inside Sales Assistant [CONS] Routine Reason for SW Consult: Discharge Planning - Constitutional Vitals: Temp Pulse Resp BP Pulse Ox 98.0 F 68 18 120/74 96 03/22/19 07:13 03/22/19 07:13 03/22/19 07:13 03/22/19 07:13 03/22/19 07:13 - Patient Status Disposition: Home Health Service - Discharge Instructions Follow Up With: Juan Asif MD [Primary Care Provider] - 1 week - Diet and Activity Activity: as per physical therapy Diet: low fat, low cholesterol
--- NOTE | 2019-03-22 11:02 | Physician Discharge Referral ---
Home Health/Hosp Referral Info Transfer to: Home Health Attending Provider: Kenneth Provider in Charge Post Discharge: PCP Fady) - Diagnosis (1) Status post bilateral knee replacements Priority: Primary Status: Acute (2) Hyperlipemia Priority: Secondary Status: Chronic (3) [place] (obstructive sleep apnea) Priority: Secondary Status: Chronic (4) Acute blood loss anemia Priority: Secondary Status: Acute (5) B12 deficiency Priority: Secondary Status: Acute (6) Muscle spasm Priority: Secondary Status: Acute - Respiratory Orders Smoking Cessation: Smoking cessation has been advised. For more information, call the [place] Tobacco Quit Line at 9-414-YWZV-NOW. - Diet/Nutrition Diet/Nutrition Orders: Cardiac - Activity Activity Orders: Chair - Services Needed Following services are medically necessary services: Nursing, Home Health Aide, Physical Therapy, Occupational Therapy - Transfer Medications Prescriptions: Cyanocobalamin (B-12) [Vitamin B12] 1,000 mcg PO DAILY #30 tablet Home Medications: Citalopram [CeleXA] 30 mg PO DAILY 04/18/16 [History] Ezetimibe/Simvastatin [Vytorin 10-40 mg Tablet] 1 tab PO DAILY 04/18/16 [History] Gluc/Matt-MSM#1/C/Robert/Matthew/Bor [Osteo Bi-Flex Caplet] 1 tab PO DAILY 04/18/16 [History] Memantine HCl 10 mg PO BID 12/22/17 [History] Cholecalciferol (D-3) [Vitamin D] 2,000 unit PO DAILY 02/17/18 [History] Donepezil [Aricept] 5 mg PO DAILY 03/01/19 [History] Fluticasone Propionate Nasal [Flonase] 1 spr NS DAILY PRN 03/01/19 [History] Ferrous Sulfate 325 mg PO BIDWM tablet 03/04/19 [Rx] Acetaminophen [Tylenol] 650 mg PO Q6HR PRN tablet 03/22/19 [Rx] Cyanocobalamin (B-12) [Vitamin B12] 1,000 mcg PO DAILY #30 tablet 03/22/19 [Rx] Allergies/Adverse Reactions: Allergy/AdvReac Type Severity Reaction Status Date / Time lisinopril Allergy Swelling Verified 03/01/19 08:42 of Lip/Tongue/Throat Certification: Further, I certify that my clinical findings support that this patient is homebound (i.e. absences from home require considerable and taxing effort and are for medical reasons or latter day services or infrequently or short duration when for other reasons) because: Homebound Reason: Leaving home requires considerable and taxing effort due to condition (Status post bilateral TKR with impaired walking ability.) Attestation: My signature below is to certify that this patient is under my care and that I, or nurse practitioner, or a physician's miller head assistant wet process working with me, has a [id number] encounter with this patient.
== END 2019-03-22 13:06 | disposition home health service (06) | DRG 560 ==
LOC: INPPIK 15:49
PROVIDERS: ADMIT Internal Medicine; ATTEND Internal Medicine